=== PATIENT | male | born 1975 | race Caucasian/White ===

== ENCOUNTER 2017-03-02 01:18 | Emergency (ER) | payer MEDICAID ==
[~2017-03-02] VITALS: Ht 165.1 cm; Wt 71.0 kg
[2017-03-02] MEDS ORDERED: SODIUM CHLORIDE 0.9% 1,000 ML IV ONE (01:48)
[2017-03-02] MEDS ORDERED: FAMOTIDINE 20MG/2ML VIAL IV STA (01:48)
[2017-03-02] MEDS ORDERED: ONDANSETRON HCL 4MG/2ML VIAL IV STA (01:48)
[2017-03-02 02:13] LABS: MEAN CORPUSCULAR HEMOGLOBIN 32.3 pg (28.0-32.0); MEAN CORPUSCULAR VOLUME 96.2 fL (80.0-94.0); MEAN PLATELET VOLUME 7.8 fl (7.4-10.4); PLATELET 65 x1000/uL (130-400); RED BLOOD CELL COUNT 2.49 mill/uL (4.7-6.1); RED CELL DISTRIBUTION WIDTH 19.1 % (11.6-14.6)
[2017-03-02 02:14] LABS: CHLORIDE 113 mEq/L (98-107)
[2017-03-02 02:20] LABS: INR 1.8; PROTHROMBIN TIME 18.3 sec
[2017-03-02 02:23] LABS: CARBON DIOXIDE 22 mEq/L (21-32); ETHANOL BLOOD < 10 mg/dL
[2017-03-02 06:35] VITALS: BP 141/90
[2017-03-02 07:57] LABS: PLATELET ESTIMATE DECREASED
[2017-03-02] MEDS ORDERED: SODIUM CHLORIDE 0.9% 10ML VIAL ONE (16:12)
[2017-03-02] MEDS ORDERED: IOHEXOL-300 100 ML BOTTLE ONE (16:12)
[2017-03-02] MEDS ORDERED: DIATR MEGLU/DIATRIZOATE SOLN 120ML ONE (16:12)
== END 2017-03-02 07:04 | disposition home or self-care (01) ==
LOC: ER 01:22
DX: K62.5 Hemorrhage of anus and rectum (principal); R52 Pain, unspecified; J44.9 Chronic obstructive pulmonary disease, unspecified; E11.9 Type 2 diabetes mellitus without complications; I10 Essential (primary) hypertension; F10.20 Alcohol dependence, uncomplicated
CPT/HCPCS: 36415; 70450; 71010; 74177; 80053; 83690; 85025; 85610; 86850; 86900; 86901; 93005; 96361; 96374; 96375; 99285; A4216; G0482; J2405; J3490; J7030; Q9967; X7700; Z7610; Q9963